=== PATIENT | female | born 1995 | race Caucasian/White ===

== ENCOUNTER 2018-09-28 13:07 | Emergency (ER) | payer OTHER ==
[~2018-09-28] VITALS: Ht 154.9 cm; Wt 81.6 kg
[~2018-09-28 13:07] MED LIST: LEVAQUIN750 MG PO; TUSSI PRES-B L120 M1 PO; ZITHROMAX200 MG PO
== END 2018-09-28 14:13 | disposition home or self-care (01) ==
LOC: ER 13:07
DX: R07.89 Other chest pain (principal)

== ENCOUNTER 2020-02-21 17:41 | Emergency (ER) | payer OTHER ==
[~2020-02-21] VITALS: Ht 154.9 cm; Wt 90.7 kg
== END 2020-02-21 22:52 | disposition home or self-care (01) ==
LOC: ER 17:41
DX: K81.9 Cholecystitis, unspecified (principal); R10.84 Generalized abdominal pain

== ENCOUNTER 2020-02-25 15:28 | Emergency (ER) | payer OTHER ==
[~2020-02-25] VITALS: Ht 154.9 cm; Wt 88.5 kg
[2020-02-25] MEDS ORDERED: PEPCID AC20 MG PO (16:19)
[2020-02-25] MEDS ORDERED: SYMAX-SL0.125 MG SL (16:19)
[2020-02-25] MEDS ORDERED: KETO10TA2 PO (16:20)
[2020-02-25] MEDS ORDERED: ONDANSETRON ODT8 MG PO (16:21)
== END 2020-02-25 22:52 | disposition home or self-care (01) ==
LOC: ER 15:28
DX: K62.5 Hemorrhage of anus and rectum (principal); D72.829 Elevated white blood cell count, unspecified

== ENCOUNTER 2021-01-30 12:50 | Emergency (ER) | payer OTHER ==
[~2021-01-30] VITALS: Ht 154.9 cm; Wt 97.5 kg
[~2021-01-30 12:50] MED LIST changes: +KETO10TA2 PO; +ONDANSETRON ODT8 MG PO; +PEPCID AC20 MG PO; +SYMAX-SL0.125 MG SL
[2021-01-30] MEDS ORDERED: AIRBORNE EFFER1 EACH PO (17:08)
[2021-01-30] MEDS ORDERED: ZITHROMAX500 MG PO (17:08)
[2021-01-30] MEDS ORDERED: KETO10TA2 PO (17:08)
== END 2021-01-30 17:20 ==
LOC: ER 12:50
DX: A49.3 Mycoplasma infection, unspecified site (principal); R52 Pain, unspecified; R50.9 Fever, unspecified

== ENCOUNTER 2024-01-15 18:35 | Emergency (ER) | payer OTHER ==
[~2024-01-15] VITALS: Ht 152.4 cm; Wt 90.7 kg
[~2024-01-15 18:35] MED LIST changes: +AIRBORNE EFFER1 EACH PO; +ZITHROMAX500 MG PO
[2024-01-15 18:44] VITALS: BP 119/74; O2SAT 99
[2024-01-15] MEDS ORDERED: CLINDAMYCIN PHOSPHATE 150 MG/ML (600mg) IM ONE (22:45)
== END 2024-01-16 00:31 | disposition home or self-care (01) ==
LOC: ER 18:37
DX: L08.9 Local infection of the skin and subcutaneous tissue, unspecified (principal); Z88.0 Allergy status to penicillin